=== PATIENT | female | born 1995 | race Caucasian/White ===

== ENCOUNTER 2017-05-04 23:38 | Emergency (ER) | payer MEDICAID, OTHER ==
[~2017-05-04] VITALS: Ht 165.1 cm; Wt 71.8 kg
[~2017-05-04 23:38] MED LIST: AMOX875 PO; PRED20 PO
[2017-05-04 23:52] VITALS: BP 133/80; PULSE 90; RESP 14; TEMP 98.2; O2SAT 98
--- NOTE | 2017-05-05 00:05 | PD ---
HPI Chief Complaint: Laceration/Skin Injury Time Seen by Provider: 00:02 Travel History International Travel<30 days: No Contact w/Intl Traveler<30days: No Traveled to known affect area: No History of Present Illness HPI 21-year-old female presents to the emergency department for evaluation of laceration to the left fifth finger. Injury occurred at work just prior to arrival to the emergency department. Patient states she cut her hand on a broken piece of glass. Patient is right-handed. Tetanus status unknown. Patient rates pain as mild to moderate. Patient denies any decreased range of motion of the left fifth finger. No prior injury to the left fifth finger. Patient denies other injury or concerns. A straight was normal for her and denies . [facility] Past Medical History Narrative Medical Negative past medical history; immunizations current; tobacco use alcohol use; nursing notes reviewed Diminished Hearing: No Immunizations Current: Yes : 0 Social History Alcohol Use: Yes (BEER DAILY) Tobacco Use: Yes (1/3 PPD) Substance Use: No Allergies-Medications (Allergen,Severity, Reaction): Coded Allergies: No Known Allergies (Unverified , 05/05/17) Reported Meds & Prescriptions Reported Meds & Active Scripts Active No Active Prescriptions or Reported Medications Review of Systems Musculoskeletal: Positive: Pain, No: Myalgias, Arthralgias, Limited ROM Skin: Positive Other (left fifth finger laceration left fifth finger) Physical Exam Narrative GENERAL: Well-developed well-nourished female in no acute distress no respiratory distress SKIN: Warm and dry. Attention left fifth finger dorsal aspect just distal to the MCP identifies a 1 cm flap laceration to the dorsum of the digit with bleeding controlled; distally extremity is neurovascular tendon intact with brisk capillary refill less than 2 seconds and intact extension and flexion of digit at MCP DIP and PIP. CARDIOVASCULAR: Regular rate and rhythm without murmurs, gallops, or rubs. RESPIRATORY: Breath sounds equal bilaterally. No accessory muscle use. MUSCULOSKELETAL: No cyanosis, or edema. Data Data Last Documented VS Vital Signs Date Time Temp Pulse Resp B/P Pulse Ox O2 Delivery O2 Flow Rate FiO2 05/04/17 23:52 98.2 90 14 133/80 98 Orders Tetanus/Diphtheria Tox Adult (Tetanus/Di (05/05/17 00:15) Wound Care (05/05/17 00:05) Lidocaine Pf 1% Inj (Xylocaine-Mpf 1% In (05/05/17 00:15) MDM Medical Decision Making Medical Screen Exam Complete: Yes Emergency Medical Condition: Yes Medical Record Reviewed: Yes Differential Diagnosis Flap laceration, neurovascular tendon injury, fracture, retained foreign body Narrative Course Tetanus status updated; laceration repaired; patient stable for outpatient management Procedures Procedure Narrative LACERATION LOCATION: Left fifth finger LENGTH: 1 cm x 1 cm NUMBER OF STITCHES/JANAE: 5 REPAIR: The area of the laceration was prepped with Betadine and sterilely draped. The laceration was infiltrated with 1% lidocaine plain. The wound was copiously irrigated and explored without evidence of foreign body, tendon injury or neurovascular injury. The wound was closed using 5-0 nylon. This was a single layer repair. A sterile dressing was applied. The patient was advised to keep the dressing clean and dry. Patient tolerated the procedure well. Diagnosis Primary Impression: Laceration of finger of left hand Qualified Code: S61.217A - Laceration of left little finger without foreign body without damage to nail, initial encounter Referrals: Primary Care Physician 2 days Worker's Comp provider Patient Instructions: General Instructions Additional Instructions: Keep wound site clean and dry Wound check at 2 days Suture removal at 7-10 days Change dressing daily and apply Polysporin ointment Return to the emergency department for any concerns or change condition Follow-up with Worker's Comp. provider Keep site dry Scripts No Active Prescriptions or Reported Meds Disposition: 01 DISCHARGE HOME Condition: Stable Anabel Gavin MD May 05, 2017 00:05
[2017-05-05] MEDS ORDERED: TETANUS/DIPHTHERIA TOXOID ADULT 0.5 ML VIAL IM ONE (00:15)
[2017-05-05] MEDS ORDERED: LIDOCAINE HCL 1% PF 30 ML VIAL INFIL ONE (00:15)
== END 2017-05-05 00:52 | disposition home or self-care (01) ==
LOC: PHED 23:38
DX: S61.217A Laceration without foreign body of left little finger without damage to nail, initial encounter (principal); F17.210 Nicotine dependence, cigarettes, uncomplicated; Z23 Encounter for immunization; W25.XXXA Contact with sharp glass, initial encounter; Y93.9 Activity, unspecified; Y92.9 Unspecified place or not applicable; Y99.0 Civilian activity done for income or pay
CPT/HCPCS: 12001; 90471; 90714